=== PATIENT | male | born 1965 | race Caucasian/White ===

== ENCOUNTER 2020-01-08 01:13 | Outpatient (CLI) | payer BC, SELFPAY ==
--- NOTE | 2020-01-08 | DI.NM_ITS ---
APPROVED REPORT Exam: Exercise Treadmill Patient Location: Out-Patient Room/Bed: Stress Nurse: Neyda Medina RN BMI: 33.96 Baseline Rhythm: Sinus Rhythm with R BBB Indications: Patient here for further risk stratification. He reports he had an episode of substernal chest pain with associated bilateral jaw pain. He states he has had these symptoms a few times befor e and associates these symptoms with his gall bladder issues. He states he did go to the ER and his t roponin was 0.08. Medical History Medical History: Obesity Cardiac Medications: Aspirin, Lisinopril, Metoprolol Succinate ER Allergies: Hay, Peanuts, shellfish, Sulfa. Cardiac Risk Factors: HTN Previous Cardiac Procedures: None Pretest Chest Pain Characteristics: None Exercise History: Physically active Physical Disabilities: None Lung Sounds: Clear to auscultation Heart Sounds: Regular Stress Test Details Test: Exercise stress testing was performed using a Emery protocol. Nuclear Acquisition: Stress Tc-99m/Stress Tc-99m 1 day Rest Isotope: Tc-99m Sestamibi. Dose: 9.6 Date: 01/08/2020 Injection Time: 0915 Stress Isotope: Tc-99m Sestamibi. Dose: 32.5 Date: 01/08/2020 Injection Time: 1055 HR Resting HR Supine: 63 bpm Max Heart Rate (APMHR): 164 bpm Resting HR Standin bpm Target HR (85% APMHR): 139 bpm Max HR Achieved: 145 bpm % of APMHR: 88 HR response to stress: Normal HR response to stress BP Resting BP Supine: 124/76 mmHg Resting BP Standin/80 mmHg Max BP: 170/72 mmHg BP response to stress: Normal blood pressure response to stress. ECG Clinical Reason for Termination: Fatigue, Dyspnea Stress Symptoms: None Exercise duration: 9 min22 sec Highest Stage Reached: Stage 4: 4.2 mph at 16% grade. Exercise capacity: 10.76 METs Functional Capacity: Average Capacity Stress ECG Conclusion 1. Good exercise tolerance of 10.76 METS without symptoms to suggest angina 2. Normal heart rate and blood pressure response to exercise 3. Resting EKG shows a right bundle branch block. Maximum heart rate was 146 which was 88% of predic janae heart rate for age 4. Electrocardiographically there was no evidence of myocardial ischemia 5. There were no dysrhythmias Protocol Used: Emery Protocol Stress Test Summary STAGE Time (mins) Speed (mph) Grade (%) HR BP SYMPTOMS METS Supine 63 124/76 Standing 76 122/80 1 3 1.7 10 100 142/80 4.6 2 6 2.5 12 108 160/90 7 3 9 3.4 14 135 168/92 10.2 4 12 4.2 16 12.9 5 15 5.0 18 17.2 1 min recovery 140 170/72 3 min recovery 101 150/88 6 min recovery 98 152/88 MPI Conclusion No definite areas of ischemia identified
== END 2020-01-08 01:33 ==
PROVIDERS: PCP Physician Assistant; Visit Provider Internal Medicine Interventional Cardiology
DX: R07.9 Chest pain, unspecified (principal); I10 Essential (primary) hypertension; I45.10 Unspecified right bundle-branch block
CPT/HCPCS: 78452; 93017

== ENCOUNTER 2022-10-25 17:59 | Outpatient (REF) | payer BC, SELFPAY ==
[2022-10-25 19:29] LABS: Anion Gap 8.3 mmol/L (3-11); BUN 19 mg/dL (7-18); CO2 26.7 mmol/L (21.0-32.0); CREATININE 1.2 mg/dL (0.70-1.30); Calcium 9.2 mg/dL (8.5-10.1); Chloride 103 mmol/L (98-107); Estimated GFR 69.66 (mL/min/1.73m2); Glucose 109 mg/dL (74-106); Potassium 4.2 mmol/L (3.5-5.1); Sodium 138 mmol/L (136-145)
[2022-10-26 20:08] LABS: PSA, Screening 1.9 ng/mL (<=3.5)
== END 2022-10-25 18:00 | disposition home or self-care (01) ==
LOC: NCHCN 17:59
PROVIDERS: PCP Physician Assistant; Visit Provider Physician Assistant
DX: I10 Essential (primary) hypertension (principal); Z12.5 Encounter for screening for malignant neoplasm of prostate
CPT/HCPCS: 80048; 84153

== ENCOUNTER 2023-10-26 14:53 | Outpatient (REF) | payer BC, SELFPAY ==
[2023-10-26 16:57] LABS: Anion Gap 10.9 mmol/L (3-11); BUN 12 mg/dL (7-18); CO2 26.1 mmol/L (21.0-32.0); CREATININE 0.9 mg/dL (0.70-1.30); Calcium 9.4 mg/dL (8.5-10.1); Chloride 104 mmol/L (98-107); Estimated GFR 97.78 (mL/min/1.73m2); Glucose 106 mg/dL (74-106); Sodium 141 mmol/L (136-145)
[2023-10-27 20:15] LABS: PSA, Screening 0.6 ng/mL (<=4.5)
== END 2023-10-26 14:54 | disposition home or self-care (01) ==
LOC: NCHCN 14:53
PROVIDERS: PCP Physician Assistant; Visit Provider Physician Assistant
DX: I10 Essential (primary) hypertension (principal); Z12.5 Encounter for screening for malignant neoplasm of prostate
CPT/HCPCS: 80048; 84153

== ENCOUNTER 2024-10-29 18:44 | Outpatient (REF) | payer BC, SELFPAY ==
[2024-10-29 20:14] LABS: HCT 51.7 % (40.0-50.0); HGB 17.5 g/dL (13.5-17.5); MCH 30.2 pg (27.0-33.0); MCHC 33.8 % (32.0-36.0); MCV 89 fL (80-95); MPV 9.5 fL (8.0-11.0); Platelet Count 313 10^3/uL (130-400); RBC 5.79 10^6/uL (4.36-5.78); RDW 13.3 % (11.8-14.1); RDW-SD 43.7 fL; WBC 10.72 10^3/uL (4.4-10.8)
[2024-10-29 20:44] LABS: Anion Gap 12.9 mmol/L (3-11); BUN 14 mg/dL (7-18); CO2 24.1 mmol/L (21.0-32.0); CREATININE 1.1 mg/dL (0.70-1.30); Calcium 9.4 mg/dL (8.5-10.1); Calculated LDL 82 mg/dL (<100); Chloride 102 mmol/L (98-107); Cholesterol 163 mg/dL (<200); Estimated GFR 76.37 (mL/min/1.73m2); Glucose 98 mg/dL (74-106); HDL Cholesterol 48 mg/dL (40-60); Potassium 4.1 mmol/L (3.5-5.1); Sodium 139 mmol/L (136-145); Triglyceride 165 mg/dL (<150)
[2024-10-30 18:12] LABS: PSA, Screening 0.7 ng/mL (<=4.5)
== END 2024-10-29 18:45 | disposition home or self-care (01) ==
LOC: NCHCN 18:44
PROVIDERS: PCP Physician Assistant; Visit Provider Physician Assistant
DX: I10 Essential (primary) hypertension (principal); Z12.5 Encounter for screening for malignant neoplasm of prostate; Z13.220 Encounter for screening for lipoid disorders
CPT/HCPCS: 80048; 80061; 84153; 85027

== ENCOUNTER 2025-11-08 16:23 | Outpatient (REF) | payer BC, SELFPAY ==
[2025-11-08 17:38] LABS: Anion Gap 9.3 mmol/L (3-11); BUN 17 mg/dL (9-23); CO2 28.7 mmol/L (20.0-31.0); Calcium 9.5 mg/dL (8.3-10.6); Chloride 102 mmol/L (98-107); Glucose 106 mg/dL (74-106); Potassium 4.0 mmol/L (3.5-5.1); Sodium 140 mmol/L (136-145)
[2025-11-11 08:54] LABS: PSA, Screening 0.8 ng/mL (<=4.5)
== END 2025-11-08 16:24 | disposition home or self-care (01) ==
LOC: NCHCN 16:23
PROVIDERS: PCP Physician Assistant; Visit Provider Physician Assistant
DX: I10 Essential (primary) hypertension (principal); Z12.5 Encounter for screening for malignant neoplasm of prostate
CPT/HCPCS: 80048; 84153